=== PATIENT | female | born 1975 | race Caucasian/White ===

== ENCOUNTER 2017-01-24 11:21 | Inpatient (IN) | payer OTHER ==
[2017-01-24 11:59] LABS: #Basophils 0.2 thou/uL (0.0-0.2); #Eosinphils 0.1 thou/uL (0.0-0.7); #Lymphocytes 3.5 thou/uL (1.20-3.40); #Monocytes 1.2 thou/uL (0.11-0.59); #Neutrophils 13.3 thou/uL (1.40-6.50); %Basophils 0.8 % (0.0-1.0); %Eosinophils 0.3 % (0.0-10.0); %Lymphocytes 19.1 % (21.0-51.0); %Monocytes 6.7 % (0.0-10.0); Hematocrit 45.4 % (36.0-47.0); Red Blood Cell (RBC) Count 4.96 mill/uL (4.20-5.40); White Blood Cell (WBC) Count 18.2 thou/uL (4.8-10.8)
[2017-01-24 12:22] LABS: ALT (SGPT) 15 U/L (8-55); AST (SGOT) 16 U/L (5-34); Alkaline Phosphatase 87 U/L (40-150); Anion Gap 16 mmol/L (10-20); BUN (Urea Nitrogen) 13 mg/dL (7.0-18.7); Bilirubin, Total 0.5 mg/dL (0.2-1.2); CK (CPK) 32 U/L (29-168); Calc. Creatinine Clearance 0 mL/min (70-130); Calcium 9.8 mg/dL (7.8-10.44); Carbon Dioxide 23 mmol/L (22-29); Chloride 103 mmol/L (98-107); Estimated GFR-MDRD 87; Globulin 3.7 g/dL (2.4-3.5); Protein, Total 8.3 g/dL (6.0-8.3)
--- NOTE | 2017-01-24 12:24 | RAD ---
FRONTAL VIEW CHEST: CLINICAL HISTORY: Dyspnea. COMPARISON: No prior comparison. FINDINGS: There is no evidence of lobar consolidation, effusion, or pneumothorax. There is a focal round dens ity at the right lower lung zone with adjacent interstitial density. The cardiac silhouette is with in normal limits in size. Otherwise, no acute process. IMPRESSION: 1. No lobar consolidation. 2. Small, round, high density nodule of the right lower lung zone. This could relate to a granulom atous calcification. Correlation with prior chest radiograph would be helpful to document stability . Otherwise, recommend follow-up imaging to re-evaluate and confirm stability. POS: [facility]
[2017-01-24 12:26] LABS: Troponin I Less than 0.010 ng/mL (< 0.028)
[2017-01-24] MEDS ORDERED: Ketorolac Tromethamine 30 MG/ML VIAL ONE (13:29)
[2017-01-24 14:10] LABS: Bilirubin Negative (Negative); Blood, Urine Large (Negative); Glucose, Urine (Dipstick) Negative (Negative); Ketone, Urine Negative (Negative); Nitrite Negative (Negative); Protein, Urine (Dipstick) Negative (Neg-Trace); Urobilinogen 0.2 mg/dL (0.2-1.0)
[2017-01-24 14:12] LABS: Bacteria/HPF Rare-Few HPF (None Seen); Hyaline Casts/LPF 0-3 HYALINE CAST LPF (0-3 Hyaline); RBC/HPF 0-3 HPF (0-3); WBC/HPF 0-3 HPF (0-3)
[2017-01-24 14:30] LABS: Yeast-All Forms None Seen HPF (None Seen)
[2017-01-24 16:22] VITALS: BMI 28.5
--- NOTE | 2017-01-24 16:40 | MRI ---
MRI CERVICAL SPINE WITHOUT IV CONTRAST: Date: 01/24/17 HISTORY: Neck pain with pain now progressing down right arm. Patient report numbness in right hand. FINDINGS: Visualized base of the brain has a normal MRI appearance. There is normal signal intensity in the bone marrow. There is a linear area of increased T2-weighted signal intensity in the spinal cord posterior to the C4-5 level which is only seen on the T2 TIRM sequence and is not seen on the axial images. This is not seen on the sagittal T2-weighted images, but there is motion artifact on each sagittal T2-weight ed sequence obtained. This is thought to more likely be artifactual as opposed to true edema within the spinal cord. C2-3 Level: There is no disc bulge or disc herniation. Central spinal canal and neural foramina are patent. C3-4 Level: There is no disc bulge or disc herniation. Central spinal canal and neural foramina are patent. C4-5 Level: There is loss of intervertebral disc height. There is a central and right paracentral disc protrusio n which narrows the ventral subarachnoid space and appears to contact and slightly flattens the ante rior aspect of the spinal cord, but there is normal signal intensity in the spinal cord. The neural foramina are patent. C5-6 Level: There is a right central and paracentral disc protrusion which narrows the ventral subarachnoid spac e and contacts and flattens the anterior and right anterolateral aspect of the spinal cord. There is normal signal intensity in the spinal cord. There is mild to moderate right-sided neural foraminal narrowing. The left neural foramen is patent. C6-7 Level: There is a mild broad based disc bulge with left paracentral disc protrusion. This narrows the ventr al subarachnoid space, but does not appear to contact the spinal cord. There is mild left-sided neur al foraminal narrowing. The right neural foramen is patent. C7-T1 Level: There is no disc bulge or disc herniation. Central spinal canal and neural foramina are patent. IMPRESSION: 1. Disc protrusions at the C4-5 and C5-6 levels on the right, each of which flattens the central an d right anterolateral aspect of the spinal cord. There is mild to moderate right-sided neural forami nal narrowing at the C5-6 levels. 2. Disc bulge with left paracentral disc protrusion resulting in mild to moderate left-sided neural foraminal narrowing and narrowing of the ventral subarachnoid space. 3. There is a linear area of increased T2-weighted signal intensity which is only seen on the T2 TIR M sequence and is not seen on the axial images in the spinal cord posterior to the C4-5 level. This is thought to more likely be artifactual as opposed to true edema within the spinal cord. POS: [facility]
[2017-01-24] MEDS ORDERED: ALPRAZolam 0.25 MG TAB PO SCH (16:45)
[2017-01-24] MEDS: Sodium Chloride 0.45% 1,000 ML IV SCH (17:05)
[2017-01-24] MEDS ORDERED: HYDROcodone/Acetaminophen 5/325 mg Tablet PO PRN (17:40)
[2017-01-24] MEDS: Cyclobenzaprine 10 MG TAB PO PRN ×2 (18:28→23:20)
[2017-01-24] MEDS: HYDROcodone/Acetaminophen 5/325 mg Tablet PO PRN (22:05)
--- NOTE | 2017-01-24 23:09 | HP ---
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 She has been healthy up until 6 days ago. She has 2 children at home. Six days ago, she woke up with a \\\\"crick in her neck\\\\" and paresthesias in her right upper extremity. This has progressed to where she has lower extremity paresthesias. Once of the other pharmacist noticed that she was having trouble walking today. She explained that because she could feel her feet, she was taken to the emergency room. I was asked by the pharmacist in the ICU to see her. She has also been complaining of a low grade temp, right ear discomfort and her jaw hurting on righjt when she chews. PAST MEDICAL HISTORY: Unremarkable. She is a nonsmoker and nondrinker. ALLERGIES: No drug allergies other than PENICILLIN as an . She has taken cephalosporins without any side effects. FAMILY HISTORY: Negative for lung disease at an early age. There is no history that I am aware of any vasculitities PHYSICAL EXAMINATION: GENERAL: She is in no distress. She has mild resting tachycardia, heart rate of 104. She is in sinus rhythm, respiratory rate is 12-14. HEENT: Pupils are equal. Sclerae is anicteric. LUNGS: Clear. HEART: Regular rhythm. ABDOMEN: Soft and nontender. EXTREMITIES: She has upper extremity strength that appears intact, but she says her neck hurts significantly when she chairman on both sides, more so on the right. She had difficulty knowing whether her toe was up or down. She has just gross sensation of paresthesias of her lower extremities. NEUROLOGIC: I did not do a more detailed neuro exam other than that, although I did do reflexes, her lower extremities appeared to be just slightly hyperreflexic more so on the right. I have recommended admission. Hopefully, this is something relatively benign such as a disk herniation. I have ordered a stat MRI of her cervical spine with and without contrast. I have written for low dose of Xanax to help her with the MRI in the event that she has some claustrophobia. I have contacted Neurosurgery, who will see her and review her MRI today and make further recommendations. She has full admission to the hospital. A viral myelitis also is in differential. Obviously there are other more severe possibilities. I do not feel this can be worked up as an outpatient. MTDD
[2017-01-25] MEDS: ALPRAZolam 0.25 MG TAB PO PRN ×2 (00:38→13:36)
--- NOTE | 2017-01-25 01:18 | PRG ---
DATE OF SERVICE: 01/24/2017 This is a 30-minute initial hospital visit note, in which 30 minutes were spent in review of the imaging record, evaluation, examination of the patient, and formulation of a plan. Greater than 50% was spent in counseling on Ms. Marimar Ro. CHIEF COMPLAINT: Upper and lower extremity numbness with bilateral mandibular paresthesias and right-sided hip pain with neck pain. 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 She presented with acute presentation of the aforementioned. An MRI of the cervical spine was performed, demonstrates moderate stenosis at C4-C5 and at C5-C6 and the main canal, but no findings consistent with clear spinal cord compression resulting in the patient's symptoms. She does have some supraspinatus and rhomboid pain on the right side, which certainly could fit C6 neural foraminal stenosis, but patient's symptoms of mandibular paresthesias and hip pain in the presence of her recent upper respiratory infection make me most concerned about postinfectious bulbar and myelitis type presentation. Of note, the symptoms started earlier in the day before her flu vaccination. PHYSICAL EXAMINATION: The patient raises her extremity. She is getting multiple blood lab studies drawn at the time of my exam, which somewhat limits my exam, but I do not suspect a myelopathy here from a compressive nature on this patient in review of her imaging. IMPRESSION AND PLAN: As such, what I think we should do is arrange for MRI of the brain, thoracic and lumbar spine without and with contrast and also Neurology consult she may need a lumbar puncture. Discussed her care with Dr. Lord and my recommendation again would be we pursue extensive workup for postinfectious myelitis and/or demyelinating disease. I do not suspect that her disk extrusions, which are likely longstanding, are playing any role in her current symptoms, nor do they at this time warrant surgical intervention. DIAGNOSES: 1. Myalgias with lower extremity paresthesia and right hip pain. 2. Right jaw pain. 3. 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 HUANGD
[2017-01-25] MEDS: Sodium Chloride 0.45% 1,000 ML IV SCH ×2 (04:44→20:56)
[2017-01-25] MEDS: HYDROcodone/Acetaminophen 5/325 mg Tablet PO PRN ×4 (04:45→23:19)
[2017-01-25] MEDS: Cyclobenzaprine 10 MG TAB PO PRN ×3 (08:23→23:20)
[2017-01-25] MEDS ORDERED: predniSONE 20 MG TAB PO SCH (09:00)
--- NOTE | 2017-01-25 09:37 | PRG ---
DATE OF SERVICE: 01/25/2017 This is a 15-minute subsequent visit note in which 15 minutes were spent reviewing of the imaging record, evaluation and examination of the patient, and formulation of a plan. Greater than 50% of the time was spent in counseling on Marimar Ro. Ms. Ro remains neurologically with full strength. She does have paresthesias in the upper extremities and pain. She describes it in the left posterior thigh. She has also had bilateral mandibular paresthesias. 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 She has elevated white blood cell count, but has been on steroids. We will arrange for an MRI of the brain, thoracic and lumbar spine, all without and with contrast today in followup. She may need a spinal tap. Neurology has been consulted. At this point, I would not recommend any surgical intervention as I do not suspect her cervical disk protrusions are symptomatic or playing a role in her symptoms warranting surgery. BARBARA
--- NOTE | 2017-01-25 12:42 | MRI ---
MRI LUMBAR SPINE WITH AND WITHOUT CONTRAST: Technique: Multiplanar, multisequential imaging lumbar spine obtained. Post contrast images obtained after administration of 17 ml MultiHance. History: Lower extremity numbness. Back pain. FINDINGS: Lumbar vertebrae maintain normal height and alignment. Disc spaces are preserved. Vertebral body sig nal is normal. No significant disc bulge seen at L1-2, L2-3, and L3-4. There is facet arthrosis and mild hypertroph y at these levels, however, no central canal or foraminal stenosis seen at these levels. L4-5: There is a mild broad based disc bulge centrally. There is asymmetric disc protrusion to the r ight which extends into the right foramina and may contact the exiting right L4 nerve root. L5-S1: No evidence of disc bulge or protrusion. No central canal or foraminal stenosis. There is a nerve root sleeve cyst seen at the S1-2 level which is an incidental finding. IMPRESSION: 1. Small disc protrusion to the right at L4-5 extending into the right foramina as described above. 2. Facet arthrosis throughout the lumbar spine, most prominent at L3-4, L4-5, and L5-S1. No signific ant central canal stenosis identified. POS: [facility]
--- NOTE | 2017-01-25 13:02 | MRI ---
EXAM: MRI THORACIC SPINE WITH AND WIHTOUT CONTRAST: HISTORY: Extremity numbness. Extremity tingling. COMPARISON: None. TECHNIQUE: Thoracic spine MRI is performed with and without intravenous Gadolinium administration. Multisequen tial, multiplanar imaging is performed. FINDINGS: There is appropriate signal intensity in the visualized mediastinum, lung parenchyma, and solid orga ns. The thoracic aorta has an overall normal size and signal intensity. Conus medullaris terminates at the T12 level. No T2 hyperintensity. No abnormal enhancement. No cord expansion. There is no significant central canal stenosis or foraminal narrowing throughout the thoracic spine. IMPRESSION: Unremarkable pre and postcontrast MRI of the thoracic spine. POS: [facility]
--- NOTE | 2017-01-25 13:10 | MRI ---
MRI BRAIN WITH AND WITHOUT CONTRAST: HISTORY: Extremity numbness. COMPARISON: None. TECHNIQUE: Brain MRI is performed with and without intravenous Gadolinium administration. Multisequential, mul tiplanar imaging is performed. FINDINGS: No hemorrhage on the axial gradient echo sequence. No parenchymal mass, mass effect, or midline shift. Brain volume is age appropriate. Cortical darling white matter differential is preserved. Ventricles and sulci are patent and symmetric. Central arterial flow voids are maintained. Absent restricted diffusion. No significant T2 or FLAIR white matter hyperintensities. Adequate aeration of the sinuses and mastoid air cells. The calvarium has a normal T1 marrow signal intensity. Midline brain parenchymal structures are unr emarkable. No pathologic enhancement of the brain parenchyma. IMPRESSION: Unremarkable pre and post contrast brain MRI. No pathologic enhancement of the brain parenchyma. A bsent restricted diffusion. No acute infarct. POS: [facility]
--- NOTE | 2017-01-25 14:29 | PRG ---
DATE OF SERVICE: 01/25/2017 SUBJECTIVE: Ms. Marimar Ro is having more pain today. She states she is having muscle spasm and muscle cramps. She underwent her MRI imaging today of her brain, which was normal. Her lumbar spine showed an L4-L 5 disk extending into the right foramina. No central stenosis was known. There was some facet arth rosis throughout the lumbar spine. The thoracic spine MRI was unremarkable. She is undergoing a lumbar puncture today. Working diagnosis at this time is that she may have an inflammatory or viral myelitis. Dr. José has been consulted as well. Morphine was added to her pain medicines and her Flexeril dos e was increased since this did not oversedate her last night.
[2017-01-25 16:16] LABS: CSF, Glucose 62 mg/dl (40-70)
[2017-01-25] MEDS ORDERED: Morphine 2 MG/ML SYRINGE SLOW IVP PRN (19:47)
[2017-01-25] MEDS ORDERED: Acetaminophen 500 MG TAB PO PRN (19:50)
--- NOTE | 2017-01-25 20:21 | RAD ---
FLUOROSCOPIC GUIDED LUMBAR PUNCTURE 01/25/17 HISTORY: Polyneuropathy. Upper and lower extremity pain and numbness. TECHNIQUE: After informed consent was obtained, the patient was placed on the fluoroscopy table in the prone po sition. An area overlying the L2-3 interspace is marked and then meticulously prepped and draped in the usual sterile fashion. Skin and subcutaneous tissues were infiltrated with buffered 1% lidocaine for local anesthesia. A 22 gauge spinal needle was advanced into the thecal sac at the L2-3 level. Inner stylet was removed with return of clear cerebrospinal fluid. Opening pressure was obtained of approximately 14 mmHg. Approximately 14 mL of clear cerebrospinal f luid was then collected. The inner stylet was placed and spinal needle was removed. Hemostasis was a chieved with direct pressure. Dry sterile dressing was placed. The patient tolerated the procedure w ell without immediate complication. IMPRESSION: Technically successful lumbar puncture as described above. POS: [facility]
[2017-01-25] MEDS: Sodium Chloride 0.9% 500 ML IV PRN (20:38)
[2017-01-25] MEDS: diphenhydrAMINE 50 MG/ML VIAL IVP PRN (20:38)
[2017-01-25] MEDS: Gabapentin 300 MG CAP PO SCH (20:39)
[2017-01-25] MEDS: OCTAGAM 10% 20 GM, OCTAGAM 10% 10 GM in Admixture Fee 1 EACH IVPB SCH (21:41)
[2017-01-25] MEDS: Ondansetron HCl/PF 4 MG/2 ML Vial IVP PRN (21:43)
[2017-01-26] MEDS: HYDROcodone/Acetaminophen 5/325 mg Tablet PO PRN ×4 (05:31→23:32)
[2017-01-26] MEDS: Sodium Chloride 0.9% 500 ML IV PRN ×2 (05:35→20:45)
[2017-01-26] MEDS: Cyclobenzaprine 10 MG TAB PO PRN ×3 (05:35→17:36)
--- NOTE | 2017-01-26 05:49 | CON ---
DATE OF CONSULTATION: 01/25/2017 REASON FOR CONSULTATION: Extremity numbness and other sensory abnormalities associated with pain in the back area and neck. HISTORY OF PRESENT ILLNESS: A 41-year-old patient known to me from previous visit a few years ago when she had an episode of recurring skin abscesses, who was well until 5 or 6 days before admission when she developed what she describes as pain in the right side of her neck and then in the back area associated with dysesthesias in all 4 extremities. She also has noted pain or dysesthesias in the distribution of the cranial nerves around the right side of the face and dysesthesias while swallowing cold liquid. She had difficulty walking because of the lack of awareness of the position of her legs, but the strength has remained intact. Had low-grade temperature elevation of 99.6 to 99.8. Also, reported illness in her children with respiratory symptoms recently. Some headaches. No visual symptoms. No diplopia. No toothache. No nasal symptoms. No cough or sputum production. No dyspnea. No abdominal pain or diarrhea. No genitourinary symptoms. No bleeding. No joint symptoms. No skin disorder. No cognitive issues. 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 ALLERGIES: PENICILLIN as an . FAMILY HISTORY: Noncontributory. CURRENT MEDICATIONS: The patient was given Solu-Medrol in the emergency room and then oral prednisone for few days before admission. Currently, she is on p.r.n. medications, Flexeril, hydrocodone and so on. PHYSICAL EXAMINATION: VITAL SIGNS: She has been afebrile. Vital signs are normal. SKIN: Normal. No lymphadenopathy. HEENT: Ocular movements are conjugate. Sclerae white. Pupils are equal. Nasal passages patent. ear examination normal. Oral cavity normal. CHEST: Tenderness on palpation of the lateral aspect of the neck and thoracic area, but no pain at the midline on palpation of the spinous processes. The pain is described as moderate at least. There is tenderness on palpation of the appendicular structures, particularly proximal musculature. There is no lymphadenopathy. Lungs are clear. HEART: Normal. ABDOMEN: Soft. Not distended. No ascites. No bladder distention or organomegaly. EXTREMITIES: No joint inflammatory activity. No edema. Pulses are 1+ in dorsalis pedis. She has excellent strength in all 4 extremities, but no plantar reflexes, no knee reflexes or ankle reflexes. Cognitive function is intact. LABORATORY AND IMAGING DATA: We have a white cell count of 18,000, hemoglobin 14, normal MCV and platelets 519. Sodium 139, creatinine 0.74, normal liver profile, albumin 4.6 and globulin 3.7. Urinalysis unremarkable. She had an MRI of the C-spine, which showed some indentation in few areas, not enough to cause the symptoms, no obvious inflammatory changes. There was one finding that was limited to a single level and was probably an artifact as per radiologist. The MRI of thoracic and lumbar spine is still not yet interpreted. Brain MRI not yet interpreted. ASSESSMENT: Acute onset of sensory dysesthesias evolving appendicular structures and cranial nerve distribution area with preserved strengths. No evidence of myelopathy in view of normal CPK. 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 This was with mostly sensory involvement yet at this point. 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 We will order a CSF evaluation. Neurology consultation has already been requested. The elevation in white cell count is most likely due to the corticosteroid administration prior to admission. If that is confirmed, then she will need treatment with IV gamma globulin. MTDD
[2017-01-26] MEDS: Sodium Chloride 0.45% 1,000 ML IV SCH ×2 (06:49→20:57)
[2017-01-26] MEDS: Gabapentin 300 MG CAP PO SCH ×3 (08:27→20:45)
--- NOTE | 2017-01-26 11:06 | PRG ---
DATE OF SERVICE: 01/26/2017 This is a 15-minute subsequent visit note in which 15 minutes were spent in review the imaging recor d, evaluation and examination of the patient, and formulation of a plan. Greater than 50% of the ti me was spent in counseling on Marimar Ro. I reviewed Ms. Ro's full cranial spinal imagin g, it is negative for any structural pathology that would be leading to her symptoms, I have also re ad over Dr. José's notes and Dr. Lord's note and we strongly suspect that the patient has at posti nfectious myelitis and polyradiculoneuritis. She is being initiated on gammaglobulin and it appears as if her steroids have been ceased. Her protein in her CSF is 100, which is abnormal. Her white count is elevated at 18.2 with neutrophil shift. She also has thrombocytosis. Some of the elevated white count can certainly be related to the steroids. Her ESR is normal. As noted, glucose in the CSF was only 62. At this point, I will sign off from a neurosurgical standpoint. There is one pos tinfectious transverse myelitis with polyradiculitis.
[2017-01-26 11:22] LABS: EBV Early Antigen (EA) IgG AB 28.2 U/mL (0.0-8.9)
[2017-01-26] MEDS ORDERED: Enoxaparin Sodium 40 MG/0.4 ML SYRINGE SC SCH (11:30)
--- NOTE | 2017-01-26 12:12 | CON ---
DATE OF CONSULTATION: 01/26/2017 REASON FOR CONSULT: upper and lower extremity numbness. HISTORY OF PRESENT ILLNESS: Ms. Ro is a 41-year-old female whom I have been consulted to see regarding upper and lower extremities paresthesia. She reports that one week ago, she woke up with a crick in her neck after which she started noticing numbness going down into the right shoulder, arm, forearm and into the hand. Over the next few hours this progressed to involve left upper extremity from shoulder down to the fingertips. It was sparing the fifth digit on the left side. This was excruciating and very severe, burning in nature. Later part of the day on Monday evening she started noticing difficulty with swallowing. On morning when she woke up, she noticed numbness in both lower extremities from hips down to the toes. She also had tingling and burning sensation in this region. She also started noticing numbness, tingling , and burning sensation on her face, especially involving the jaw area on both sides, more so on the right than the left. In the interim, over the next of 4- 5 days she started noticing difficulty with balance and walking, although she stated that her strength was normal in both upper and lower extremities. She did not have any double vision, loss of vision, or droopy eyelid or dysarthria with this episode. As her symptoms were not improving was admitted to [facility] for further evaluation. PAST MEDICAL AND SURGICAL HISTORY: None. SOCIAL HISTORY: She denies smoking, alcohol use, or illicit drug use. She is a pharmacist at [employer]. She is . FAMILY HISTORY: Noncontributory. CURRENT MEDICATIONS: None. ALLERGIES: No known drug allergies except PENICILLIN as an infant. REVIEW OF SYSTEMS: As mentioned above in HPI, otherwise negative. PHYSICAL EXAMINATION: VITAL SIGNS: Blood pressure of 128/95, pulse of 90, temperature 97.6, respirations of 16, O2 sats of 96% on room air. GENERAL: Well-developed, well-nourished female in no apparent distress. RESPIRATORY: Clear to auscultation bilaterally. CARDIOVASCULAR: Regular rate and rhythm. NEUROLOGIC: The patient is awake, alert, oriented x3. Speech and language: Fluent speech. Cranial nerves: Pupils are 3 mm and reactive. Visual desai are intact. Extraocular muscles are intact. No nystagmus is noted. No ptosis noted. Face appears symmetric. Tongue and uvula are midline. Facial strength is normal bilaterally. Motor exam showed normal tone and bulk with a 5/5 strength in both upper and lower extremities. Sensory; there is diminished sensation to light touch, vibration and proprioception in both lower extremities distally. Deep tendon reflexes 2+ reflexes in both upper extremities and absent knee jerk on the right side and 1+ reflex in the left knee jerk, absent ankle reflexes on both sides. Babinski: Plantar responses; flexion bilaterally. Coordination; intact [id number] tapping bilaterally. Gait and Romberg are not tested. LABORATORY DATA: Reviewed, which included CBC, CMP, urinalysis, CSF studies which is significant for WBC of 18.2, platelet count of 519, potassium of 3.4. CSF WBC was 0, glucose 62 and protein is 100, otherwise unremarkable. IMAGING STUDIES: MRI brain without contrast was reviewed, which showed no acute abnormality. MRI C-spine was reviewed which showed disk protrusion at C4- C5, C5-C6 level on the right without any cord compression or cord signal changes. MRI T-spine was unremarkable. MRI L-spine showed a disk protrusion at L4-L5 without any significant central canal stenosis. IMPRESSION: 1. 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 2. Severe paresthesia of both upper and lower extremities, likely due to #1. ASSESSMENT AND PLAN: Ms. Ro is a pleasant 41-year-old female who presented with severe paresthesia of both upper and lower extremities that presented in a very acute fashion. It is somewhat of an atypical presentation in that it has presented in a descending pattern rather than ascending pattern; however, her lumbar puncture does show elevated protein with a normal WBC, suggestive of protein albuminocytologic dissociation. 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 I have discussed with the patient in detail and explained the findings of the CSF. The presumptive diagnosis of GBS and the current treatment plan. I will start her on IVIG 400 mg/kg to be infused over 8 hours daily for 3 days. She will be premedicated with Benadryl 25 mg IV and Tylenol 500 mg p.o. prior to infusion. She will be given normal saline IV bolus of 500 mL before and after each infusion. I will consult physical therapy for her gait and balance evaluation. I will continue to monitor her progress during this hospitalization. Thank you for your consultation. BARBARA
--- NOTE | 2017-01-26 17:40 | PRG ---
DATE OF SERVICE: 01/26/2017 SUBJECTIVE: Ms. Ro says she feels a 100% better than she felt yesterday. She still has her pa resthesias but says her pain is controlled. OBJECTIVE: VITAL SIGNS: She is afebrile, heart rate is 80, respiratory rate is 18, oximetry is 97, blood press ure 154/81. She is complaining of a little shortness of breath with exertion, so I did a forced vit al capacity which was over 4 liters. A negative inspiratory force was -35. I would expect a little better performance. This may be she is developing some descending symptoms. She says she is still chewing fine and swallowing fine, although she reports facial dysesthesias. LUNGS: Clear. HEART: Regular rhythm. EXTREMITIES: She has no reflexes from a knee jerk standpoint now and her toes are neutral. IMPRESSION: ? 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 PLAN: Continue with pain control and daily pulmonary function assessment.
[2017-01-26] MEDS: diphenhydrAMINE 50 MG/ML VIAL IVP PRN (20:44)
[2017-01-26] MEDS: Ondansetron HCl/PF 4 MG/2 ML Vial IVP PRN (20:53)
[2017-01-26] MEDS: OCTAGAM 10% 20 GM, OCTAGAM 10% 10 GM in Admixture Fee 1 EACH IVPB SCH (21:39)
[2017-01-27] MEDS: Cyclobenzaprine 10 MG TAB PO PRN ×3 (01:59→20:44)
[2017-01-27] MEDS: HYDROcodone/Acetaminophen 5/325 mg Tablet PO PRN ×3 (05:37→22:36)
[2017-01-27] MEDS: Sodium Chloride 0.9% 500 ML IV PRN ×2 (05:38→20:47)
[2017-01-27] MEDS: Enoxaparin Sodium 40 MG/0.4 ML SYRINGE SC SCH (07:59)
[2017-01-27] MEDS: Gabapentin 300 MG CAP PO SCH ×3 (07:59→20:43)
[2017-01-27] MEDS: Polyethylene Glycol 3350 17 GM Packet PO SCH (09:15)
[2017-01-27] MEDS: Acetaminophen 500 MG TAB PO SCH ×3 (09:15→20:43)
[2017-01-27] MEDS: Mag-Al 1200 mg/1200 mg/30 ML UDCUP PO PRN ×2 (09:15→21:14)
--- NOTE | 2017-01-27 09:26 | PRG ---
DATE OF SERVICE: 01/27/2017 Ms. Ro for some reason was not given her pain meds as ordered as often as she could be given th em and had a terrible night with no sleep and total body aches and pains. She was crying when I mad e rounds this morning. PHYSICAL EXAMINATION: VITAL SIGNS: She is afebrile, heart rate is 85, respiratory rate is 18, blood pressure 139/77. LUNGS: Clear. HEART: Regular rhythm. ABDOMEN: Soft. Pulmonary function had not been done when I rounded on her. IMPRESSION: Guillain-[place] syndrome. PLAN: 1. Transfer to Intermediate Care Unit. 2. Continue IVI. Continue with serial measurements of pulmonary function.
--- NOTE | 2017-01-27 10:25 | PRG ---
DATE OF SERVICE: 01/26/2017 SUBJECTIVE: Ms. Ro presented with the acute onset of paresthesia to both upper and lower extre mities, she is found to have a presumptive Guillain-[place] syndrome. She was started on IVIG yesterd ay. She reports that there has not been any change in her symptoms over the past 24 hours. She did have a small rash that developed at the end of the IVIG infusion, but that has since been resolved. She does complain of some headache and dizziness that has been under control with medication. She has been requiring [place] for pain control. She denies any weakness in upper and lower extremities. She denies dysarthria or dysphagia. PHYSICAL EXAMINATION: VITAL SIGNS: Blood pressure of 149/81, pulse of 90, temperature of 98.3, respirations 16, O2 sats o f 97% on room air. GENERAL: Well-developed, well-nourished female, in no apparent distress. RESPIRATORY: Clear to auscultation bilaterally. CARDIOVASCULAR: Regular rate and rhythm. NEUROLOGIC: Mental status: The patient is awake, alert, oriented x3. Speech and language: Fluent speech. Cranial nerves: Pupils are 3 mm and reactive. Visual desai are intact. Extraocular mus cles are intact. Face is symmetric. Motor exam: Showed normal tone and bulk with a 5/5 strength i n both upper and lower extremities. Sensory: Diminished sensation in both the upper and lower extr emities, more so on the lower extremity than the upper extremity. Deep tendon reflexes: A 2+ refle xes in both upper extremities, absent reflexes in the right knee jerk, 1+ reflex in the left knee je rk, and absent bilateral ankle reflexes. Babinski: Plantar responses flexion bilaterally. Coordin ation: Intact to cirrfe-dlet-desanh tapping bilaterally. LABORATORY DATA: Labs are reviewed. IMPRESSION: 1. Guillain-[place] syndrome. 2. Bilateral upper and lower extremity paraesthesia, due to #1. Ms. Ro is a pleasant 41-year-old female, who presented with a 1-week history of sudde n onset of bilateral upper and lower extremity paraesthesia. Her lumbar puncture showed cytoalbumin ogenic dissociation consistent with Guillain-[place] syndrome. She has been started on IVIG and has t olerated the IVIG fairly well without any major complications. We will continue on the IVIG for at least 3 doses. I will recommend keeping her in the hospital for 24-hour observation post-IVIG. Onc e 3 days of IVIG is completed, she may be discharged to home. I would follow up in my clinic in 2 w eeks. Continue with gabapentin 300 mg three times a day. Thank you for your consultation.
[2017-01-27] MEDS: Sodium Chloride 0.45% 1,000 ML IV SCH ×2 (10:44→20:47)
[2017-01-27 15:23] LABS: Anti-Striation AB Negative (Neg:<1:40); Antiparietal Cell Ab 3.9 Units (0.0-20.0); Complement C4 18 mg/dL (14-44); Mitochondrial (M2) ABS 6.6 Units (0.0-20.0); SCL-70 IgG AutoAb <0.2 AI (0.0-0.9); Smith IgG AutoAb <0.2 AI (0.0-0.9); Smooth Muscle AB 21 Units (0-19); Thyroid Peroxidase Abs 13 IU/mL (0-34); U1 RNP/SNRNP IgG AutoAb <0.2 AI (0.0-0.9)
--- NOTE | 2017-01-27 19:01 | PRG ---
DATE OF SERVICE: 01/27/2017 SUBJECTIVE: Ms. Ro is a pleasant 41-year-old female presented with acute onset of di ffuse pain. She is found to have protein cyto-albuminic dissociation consistent with Guillain-[place] syndrome. She has received 2 doses of IVIG. She states that her pain has not improved much over t he past 24 hours. She has noted increasing headache in the bifrontal region that radiates to the to p of the head. This is very sharp and excruciating in severity. She has been requiring [place], Flex eril and morphine consistently without much improvement. She has been transferred to ICU for close observation. She denies any weakness in upper and lower extremities. She denies vision changes or changes in speech or swallowing. PHYSICAL EXAMINATION: VITAL SIGNS: Blood pressure of 150/90, pulse of 109, temperature of 99.7, respirations of 20, and O 2 sats of 98% on room air. GENERAL: Well-developed and well-nourished female in no apparent distress. HEENT: I did look into her ears with otoscope, the otoscopic exam is essentially normal. RESPIRATORY: Clear to auscultation bilaterally. CARDIOVASCULAR: Regular rate and rhythm. NEUROLOGIC: Essentially unchanged when compared to yesterday. IMPRESSION: 1. 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 2. Diffuse pain, likely secondary to presumptive Guillain-[place] syndrome. ASSESSMENT AND PLAN: Ms. Ro is a pleasant 41-year-old female who presented with the diffuse pain. She is found to have elevated protein in the CSF with normal WBC suggestive of Guilla in-[place] syndrome. She has been receiving IVIG and has completed 2 days of IVIG without much improv ement in her symptoms. At this time, I will change her number of IVIG to be given from 3 days to 5 days. I will recommend continuing her on current medications. Continue supportive care. Continue current medical management. I have informed the patient that I will be out of town on Monday and Monday, so on-call neurologist, Dr. Lopez will be available if there is any need for acute neurolo gical changes.
[2017-01-27] MEDS: diphenhydrAMINE 50 MG/ML VIAL IVP PRN ×2 (20:44→20:51)
[2017-01-27] MEDS: OCTAGAM 10% 20 GM, OCTAGAM 10% 10 GM in Admixture Fee 1 EACH IVPB SCH (20:57)
[2017-01-27] MEDS ORDERED: OCTAGAM 10% 20 GM, OCTAGAM 10% 10 GM in Admixture Fee 1 EACH IVPB SCH (21:00)
[2017-01-27] MEDS: Ondansetron HCl/PF 4 MG/2 ML Vial IVP PRN (21:14)
[2017-01-27] MEDS: Mag-Al Plus 1200 MG/1200 MG/120 MG/30 ML UDCUP PO PRN (22:30)
[2017-01-27] MEDS: ALPRAZolam 0.25 MG TAB PO PRN (22:30)
[2017-01-28] MEDS: HYDROcodone/Acetaminophen 5/325 mg Tablet PO PRN ×3 (05:10→18:06)
[2017-01-28] MEDS: Ondansetron HCl/PF 4 MG/2 ML Vial IVP PRN ×2 (05:10→21:06)
[2017-01-28] MEDS: Sodium Chloride 0.9% 500 ML IV PRN ×2 (05:11→20:57)
[2017-01-28 05:38] LABS: Magnesium 2.2 mg/dL (1.6-2.6); Phosphorus 3.7 mg/dL (2.3-4.7)
[2017-01-28] MEDS: Acetaminophen 500 MG TAB PO SCH ×3 (09:40→21:03)
[2017-01-28] MEDS: Enoxaparin Sodium 40 MG/0.4 ML SYRINGE SC SCH (09:40)
[2017-01-28] MEDS: Gabapentin 300 MG CAP PO SCH ×3 (09:40→21:03)
[2017-01-28] MEDS: Polyethylene Glycol 3350 17 GM Packet PO SCH (09:42)
[2017-01-28] MEDS ORDERED: Laxative Of Choice PO PRN (10:11)
[2017-01-28] MEDS: Sodium Chloride 0.45% 1,000 ML IV SCH ×2 (11:11→20:00)
--- NOTE | 2017-01-28 13:31 | PRG ---
DATE OF SERVICE: 01/28/2017 SUBJECTIVE: This morning, awake, alert, responsive. OBJECTIVE: VITAL SIGNS: Blood pressure 130/73, pulse 109, temperature 98, sats are 98%, respirations 18. I's and O's are difficult to assess. CHEST: Decreased breath sounds. There is no wheezing. CARDIAC: Normal S1, S2. No gallops. ABDOMEN: Soft. No masses. IMPRESSION: 1. Presumed Guillain [place] with elevated CSF protein. 2. Severe muscle pain, cramps. PLAN: She is getting IVIG for the next 2 more days, total of 5 doses. Otherwise, supportive care, PT, pain relief. We will follow.
[2017-01-28] MEDS: Bisacodyl 5 MG TAB PO PRN (16:47)
[2017-01-28] MEDS: Cyclobenzaprine 10 MG TAB PO PRN (16:47)
--- NOTE | 2017-01-28 18:21 | CON ---
DATE OF CONSULTATION: 01/28/2017 HISTORY OF PRESENT ILLNESS: Ms. Ro reports that she continues to have numbness of all 4 extrem ities as well as the base of her skull and some discomfort around the right jaw. She has not notice d any problems with her vision. She denies any problems chewing or swallowing. She has not noticed any weakness in the extremities. She is still having difficulty with her gait secondary to the sen ajit loss. She is on day 4 of her gamma globulin. She seems to be tolerating the treatment well. We will continue gamma globulin and complete the cycle.
[2017-01-28] MEDS: ALPRAZolam 0.25 MG TAB PO PRN (21:03)
[2017-01-28] MEDS: Mag-Al Plus 1200 MG/1200 MG/120 MG/30 ML UDCUP PO PRN (21:04)
[2017-01-28] MEDS: diphenhydrAMINE 50 MG/ML VIAL IVP PRN (21:04)
[2017-01-28] MEDS: OCTAGAM 10% 20 GM, OCTAGAM 10% 10 GM in Admixture Fee 1 EACH IVPB SCH (21:15)
[2017-01-29] MEDS: Sodium Chloride 0.45% 1,000 ML IV SCH ×3 (06:39→21:30)
[2017-01-29] MEDS: Sodium Chloride 0.9% 500 ML IV PRN (06:41)
[2017-01-29] MEDS: Ondansetron HCl/PF 4 MG/2 ML Vial IVP PRN ×2 (07:50→20:44)
[2017-01-29] MEDS ORDERED: Pot Chloride/Pot Bicarb/Cit Ac 25 mEq Effervescent Tablet PO SCH (08:00)
[2017-01-29] MEDS: Acetaminophen 500 MG TAB PO SCH ×3 (09:26→20:39)
[2017-01-29] MEDS: Enoxaparin Sodium 40 MG/0.4 ML SYRINGE SC SCH (09:26)
[2017-01-29] MEDS: Gabapentin 300 MG CAP PO SCH ×3 (09:26→20:39)
[2017-01-29] MEDS: Polyethylene Glycol 3350 17 GM Packet PO SCH (09:27)
--- NOTE | 2017-01-29 13:32 | PRG ---
DATE OF SERVICE: 01/29/2017 SUBJECTIVE: This morning, she is awake, alert, responsive. She sees better. She is less short of breath. PHYSICAL EXAMINATION: VITAL SIGNS: Pulse 103, temperature 98, sats are 97% on room air, blood pressure 137/90. GENERAL: She is clearly stronger. She is walking in the halls. I's \T\ O's have been good. CHEST: No wheezing. CARDIAC: Normal S1 and S2. No gallops. ABDOMEN: Soft. No masses. IMPRESSION: 1. Presumed Guillain [place] on 5 days of IVIG. 2. Pain much improved and her imbalance is better. PLAN: Continue PT, minimize pain medicine, hopefully disposition in the next several days per prima ry care physician.
[2017-01-29] MEDS: OCTAGAM 10% 20 GM, OCTAGAM 10% 10 GM in Admixture Fee 1 EACH IVPB SCH (21:25)
[2017-01-29] MEDS: HYDROcodone/Acetaminophen 5/325 mg Tablet PO PRN (21:25)
[2017-01-29] MEDS: Bisacodyl 5 MG TAB PO PRN (21:35)
[2017-01-30] MEDS: Acetaminophen 500 MG TAB PO SCH (07:20)
[2017-01-30] MEDS: Gabapentin 300 MG CAP PO SCH (07:20)
[2017-01-30] MEDS: Polyethylene Glycol 3350 17 GM Packet PO SCH (07:21)
[2017-01-30] MEDS: Enoxaparin Sodium 40 MG/0.4 ML SYRINGE SC SCH (07:21)
[2017-01-30] MEDS: Ondansetron HCl/PF 4 MG/2 ML Vial IVP PRN (07:23)
[2017-01-30 09:10] LABS: A/G Ratio 1.1 (0.7-1.7); Albumin 3.4 g/dL (2.9-4.4); Alpha 1 0.3 g/dL (0.0-0.4); Alpha 2 0.7 g/dL (0.4-1.0); Gamma 1.1 g/dL (0.4-1.8); Globulin, Total 3.1 g/dL (2.2-3.9); M-Spike Not Observed g/dL (Not Observed)
[2017-01-30] MEDS: Sodium Chloride 0.45% 1,000 ML IV SCH (12:13)
[2017-01-30] MEDS ORDERED: Ibuprofen 600 MG TAB PO PRN (12:23)
[2017-01-30 12:48] VITALS: TEMP 98.5
[2017-01-30 13:15] VITALS: BP 142/101
--- OUTSIDE RECORDS SUMMARY | 2017-01-30 16:58 | XMS | Clinical Summary ---
:1975 Author Organization [facility] Address [address] [place] [address] Phone Care Team Providers Name Role Phone , Primary Care Provider Unavailable Allergies Not on File Current Medications Not on file Active Problems Not on file Social History Tobacco Use Types Packs/Day Years Used Date Never Assessed Sex Assigned at Date Recorded Not on file Last Filed Vital Signs Not on file Plan of Treatment Not on file Results Not on filefrom Last 3 Months
--- NOTE | 2017-01-30 23:44 | DIS ---
Please see history and physical and progress notes for details. Briefly, Ms. Ro presented with 4-extremity progressive paresthesias. She was admitted, lost he r reflexes, and was diagnosed with Guillain-[place]. Last she had evidence of weakness or re spiratory muscles, but this had improved by Monday. Over the weekend she began ambulating in the [place] and says she is feeling much better. She still has some musculoskeletal discomfort, so she will be discharged home with some Ultram as well as some Neurontin 300 mg 3 times a day and Ultram 50 mg 4 times a day. Overall she has improved dramatically. DISCHARGE DIAGNOSES: 1. Guillain-[place] syndrome. 2. C4-C5, C5-C6, mild disk herniation not accounting for her symptoms for neurosurgical consultatio n. 3. History of two successful pregnancies in the past. She will follow up with a neurologist in [facility].
[2017-02-01 14:28] LABS: Zika Virus IgM Antibody Negative (Negative)
== END 2017-01-30 14:34 | disposition home or self-care (01) | DRG 96 ==
LOC: ERS 11:21 → OBSVTOIN 16:00 → 2SE 16:00 → IMCU/EMU 01-27 12:20
PROVIDERS: ADMIT Internal Medicine Critical Care Medicine; ATTEND Internal Medicine Critical Care Medicine
PROC: 009U3ZX Drainage of Spinal Canal, Percutaneous Approach, Diagnostic (ICD-10-PCS; principal; 2017-01-25)
DX: G61.0 Guillain-Barre syndrome (principal); M48.02 Spinal stenosis, cervical region; F40.240 Claustrophobia; M50.221 Other cervical disc displacement at C4-C5 level; R06.02 Shortness of breath; D47.3 Essential (hemorrhagic) thrombocythemia; Z86.14 Personal history of Methicillin resistant Staphylococcus aureus infection
CPT/HCPCS: 36415; 62270; 70553; 71010; 72141; 72157; 72158; 80053; 81003; 81015; 82550; 82553; 82945; 83520; 83735; 83880; 84100; 84157; 84165; 84484; 85025; 85652; 86160; 86225; 86235; 86376; 86431; 86618; 86663; 86664; 86665; 87070; 87205; 87389; 89051; 93005; 94150; 96361; 96374; A4216; G8978-GP-CJ; G8979-GP-CI; J1200; J1568; J1650; J1885; J2270; J2405; J7506

== ENCOUNTER 2017-06-29 11:50 | Outpatient (CLI) | payer OTHER | END 2017-06-29 11:51 | disposition home or self-care (01) | LOC: BICMAMMO 11:50 | PROVIDERS: ATTEND Obstetrics & Gynecology | DX: Z12.31 Encounter for screening mammogram for malignant neoplasm of breast (principal) | CPT/HCPCS: 77063; 77067 ==

== ENCOUNTER 2017-07-06 09:50 | Outpatient (CLI) | payer OTHER | END 2017-07-06 09:51 | disposition home or self-care (01) | LOC: BICMAMMO 09:50 | PROVIDERS: ATTEND Obstetrics & Gynecology | DX: R92.2 Inconclusive mammogram (principal); N64.89 Other specified disorders of breast; Z80.3 Family history of malignant neoplasm of breast | CPT/HCPCS: G0279 ==

== ENCOUNTER 2020-07-23 11:46 | Outpatient (CLI) | payer OTHER | END 2020-07-23 11:47 | disposition home or self-care (01) | LOC: BICMAMMO 11:46 | DX: Z12.31 Encounter for screening mammogram for malignant neoplasm of breast (principal); Z80.3 Family history of malignant neoplasm of breast | CPT/HCPCS: 77063; 77067 ==

== ENCOUNTER 2022-05-19 09:17 | Outpatient (CLI) | payer OTHER | END 2022-05-19 09:18 | disposition home or self-care (01) | LOC: BICRAD 09:17 | PROVIDERS: ATTEND Family Medicine | DX: M47.22 Other spondylosis with radiculopathy, cervical region (principal); M48.02 Spinal stenosis, cervical region | CPT/HCPCS: 72052 ==